=== PATIENT | male | born 1985 | race African-American/Black ===

== ENCOUNTER 2020-04-22 11:41 | Emergency (ER) | payer MEDICAID ==
[~2020-04-22] VITALS: Ht 172.7 cm; Wt 101.2 kg
[2020-04-22 12:12] VITALS: BP 134/66
--- NOTE | 2020-04-22 12:20 | NUR ---
34YO M BIB FRIEND C/O DIZZINESS AND PALPITATIONS AFTER DRINKING JUICE AT A [facility] 30MINS AGO. DENIES VOMITING. DENIES DRUG OR ALCOHOL INTAKE. IN ED, VSS. AOX4. CLEAR BREATH SOUNDS. NORMAL RATE REGULAR RHYTHM. ERMD MADE AWARE OF PT STATUS. PMH: HTN NKA
[2020-04-22] MEDS ORDERED: MECLIZINE 25 MG TAB PO ONE (13:20)
[2020-04-22 13:41] LABS: BASOPHILS % (AUTO) 0.4 % (0.0-2.0); EOSINOPHILS # (AUTO) 0.2 K/uL (0-0.4); EOSINOPHILS % (AUTO) 2.1 % (0.0-4.0); HEMATOCRIT 41.8 % (36-52); HEMOGLOBIN 13.8 g/dL (12.0-18.0); LYMPHOCYTES # (AUTO) 1.8 K/uL (2.0-11.5); LYMPHOCYTES % (AUTO) 22.7 % (20.5-51.1); MEAN CORPUSCULAR HEMOGLOBIN 27 pg (27-31); MEAN CORPUSCULAR HGB CONC 33 g/dL (33-37); MEAN CORPUSCULAR VOLUME 83.2 fL (80-94); MONOCYTES # (AUTO) 0.7 K/uL (0.8-1.0); MONOCYTES % (AUTO) 8.9 % (1.7-9.3); NEUTROPHILS # (AUTO) 5.2 K/uL (1.8-7.7); NEUTROPHILS % (AUTO) 65.9 % (42.2-75.2); PLATELET COUNT (AUTO) 365 K/uL (140-450); RED BLOOD CELL COUNT(AUTO) 5.03 MIL/uL (4.20-6.10)
[2020-04-22 14:43] LABS: ALBUMIN 4.3 g/dL (3.4-5.0); ANION GAP 17.1 (8-16); ASPARTATE AMINOTRANSFERASE 16 U/L (15-37); CARBON DIOXIDE 22.8 mmol/L (21-32); CHLORIDE 102 mmol/L (98-107); CREATININE 0.8 mg/dL (0.6-1.3); GFR ARICAN-AMERICAN 144 mL/min (>90); GLUCOSE 88 mg/dL (74-106); POTASSIUM 3.9 mmol/L (3.5-5.1); SODIUM SERUM 138 mmol/L (136-145); TOTAL BILIRUBIN 0.4 mg/dL (0.0-1.0); UREA NITROGEN, BLOOD 10 mg/dL (7-18)
[2020-04-22 14:44] LABS: ACETAMINOPHEN < 0.5 ug/ml (10-30); SALICYLATE < 2.8 mg/dL (2.8-20.0)
[2020-04-22 15:28] LABS: BARBITURATE, URINE NEGATIVE ng/ml (NEG <=200); BENZODIAZEPINE, URINE NEGATIVE ng/mL (NEG <=200); CANNABINOID, URINE NEGATIVE ng/mL (NEG <=50); COCAINE, URINE NEGATIVE ng/mL (NEG <=300); OPIATE, URINE NEGATIVE ng/mL (NEG <=2000); PHENCYCLIDINE SCREEN,URINE NEGATIVE ng/mL (NEG <=25)
[2020-04-22 15:40] VITALS: BP 134/66
== END 2020-04-22 15:40 | disposition home or self-care (01) ==
LOC: MED 11:41
DX: T50.901A Poisoning by unspecified drugs, medicaments and biological substances, accidental (unintentional), initial encounter (principal); Y92.89 Other specified places as the place of occurrence of the external cause
CPT/HCPCS: 36415; 80053; 80305; 85025; 93005; 99284; G0480; G0482; J8597